=== PATIENT | male | born 1945 | race Caucasian/White ===

== ENCOUNTER 2024-02-15 14:43 | Inpatient (IN) | payer MEDICARE ==
[~2024-02-15] VITALS: Ht 182.9 cm; Wt 73.0 kg
[2024-02-15 15:45] LABS: BASOPHILS % (AUTO) 0.7 % (0.0-2.0); EOSINOPHILS # (AUTO) 0.3 K/uL (0.0-0.7); EOSINOPHILS % (AUTO) 4.7 % (0.0-6.0); HEMATOCRIT 29 % (39-51); HEMOGLOBIN 10.1 g/dL (13.5-17.5); LYMPHOCYTES # (AUTO) 2.3 K/uL (0.8-4.8); LYMPHOCYTES % (AUTO) 38.5 % (20.0-44.0); MEAN CORPUSCULAR HEMOGLOBIN 33 PG (26.0-33.0); MEAN CORPUSCULAR HGB CONC 35 g/dl (31.0-36.0); MEAN CORPUSCULAR VOLUME 94 fL (80-96); MONOCYTES # (AUTO) 0.4 K/uL (0.1-1.30); MONOCYTES % (AUTO) 6.4 % (2.0-12.0); NEUTROPHILS % (AUTO) 49.7 % (43.0-81.0); PLATELET COUNT (AUTO) 246 K/uL (150-450); RED BLOOD CELL COUNT(AUTO) 3.06 MIL/uL (4.5-6.0); RED CELL DISTRIBUTION WIDTH 14.1 % (11.5-15.0)
[2024-02-15 15:59] LABS: ALANINE AMINOTRANSFERASE 24 U/L (12-78); ALBUMIN 3.6 g/dL (3.4-5.0); ALKALINE PHOSPHATASE 53 U/L (46-116); ASPARTATE AMINOTRANSFERASE 18 U/L (15-37); BILIRUBIN,DIRECT 0.1 mg/dL (0.0-0.2); BILIRUBIN,TOTAL 0.3 mg/dL (0.2-1.0); CARBON DIOXIDE 24 mmol/L (21-32); CHLORIDE 106 mmol/L (98-107); CREATININE 1.6 mg/dL (0.6-1.3); GLUCOSE 88 mg/dL (74-106); LIPASE 66 U/L (16-77); POTASSIUM 4.3 mmol/L (3.5-5.1); SODIUM SERUM 138 mmol/L (136-145); TOTAL PROTEIN, SERUM 6.7 g/dL (6.4-8.2); UREA NITROGEN, BLOOD 30 mg/dL (7-18)
[2024-02-15] MEDS ORDERED: ONDANSETRON HCL/PF 4 MG/2 ML VIAL IVP PRN (16:30)
[2024-02-15] MEDS ORDERED: ACETAMINOPHEN 650 MG/SUPP.RECT RC PRN (16:30)
[2024-02-15] MEDS ORDERED: Z GUARD REMEDY 4 OZ OINT TP PRN (16:30)
[2024-02-15 16:45] LABS: INR 1.04 (0.91-1.10); PARTIAL THROMBOPLASTIN TIME 24.5 SEC (24.3-34.3)
[2024-02-15 17:15] VITALS: BP 125/65; TEMP 98.4; O2SAT 98
[2024-02-15] MEDS ORDERED: MELA1TAB27 PO (19:33)
[2024-02-15] MEDS ORDERED: METO25TA4 PO (19:33)
[2024-02-15] MEDS ORDERED: FINA5TAB11 PO (19:33)
[2024-02-15] MEDS ORDERED: MULT-1275 PO (19:33)
[2024-02-15] MEDS ORDERED: DONE10TA44 PO (19:33)
[2024-02-15] MEDS ORDERED: LISI20TA30 PO (19:33)
[2024-02-15] MEDS ORDERED: FLUT16SP BNOSTRILS (19:33)
[2024-02-15] MEDS ORDERED: METF-440 PO (19:33)
[2024-02-15] MEDS ORDERED: LORA-259 PO (19:33)
[2024-02-15] MEDS ORDERED: GLIP5TAB13 PO (19:33)
[2024-02-15] MEDS ORDERED: TAMS-12 PO (19:33)
[2024-02-15] MEDS ORDERED: CHOL100043 PO (19:33)
[2024-02-15] MEDS ORDERED: FAMO20TA8 PO (19:33)
[2024-02-15] MEDS ORDERED: QUET100T PO (19:33)
[2024-02-15] MEDS ORDERED: ATOR20TA PO (19:33)
[2024-02-15] MEDS ORDERED: DOCU100C36 PO (19:33)
[2024-02-15] MEDS ORDERED: ACET325T53 PO (19:33)
[2024-02-15 20:00] VITALS: BP 124/78; TEMP 97.9; O2SAT 95
[2024-02-15] MEDS: IV NS 0.9% 1,000 ML IV PRN (22:10)
[2024-02-16 04:00] VITALS: BP 126/81; TEMP 98.1; O2SAT 94
[2024-02-16 06:27] LABS: BASOPHILS % (AUTO) 0.8 % (0.0-2.0); EOSINOPHILS # (AUTO) 0.2 K/uL (0.0-0.7); EOSINOPHILS % (AUTO) 3.3 % (0.0-6.0); HEMATOCRIT 27 % (39-51); HEMOGLOBIN 9.4 g/dL (13.5-17.5); LYMPHOCYTES # (AUTO) 2.3 K/uL (0.8-4.8); LYMPHOCYTES % (AUTO) 35.4 % (20.0-44.0); MEAN CORPUSCULAR HEMOGLOBIN 33 PG (26.0-33.0); MEAN CORPUSCULAR HGB CONC 35 g/dl (31.0-36.0); MEAN CORPUSCULAR VOLUME 94 fL (80-96); MONOCYTES # (AUTO) 0.4 K/uL (0.1-1.30); MONOCYTES % (AUTO) 6.1 % (2.0-12.0); NEUTROPHILS # (AUTO) 3.5 K/uL (1.8-8.9); NEUTROPHILS % (AUTO) 54.4 % (43.0-81.0); PLATELET COUNT (AUTO) 226 K/uL (150-450); RED BLOOD CELL COUNT(AUTO) 2.86 MIL/uL (4.5-6.0); RED CELL DISTRIBUTION WIDTH 13.6 % (11.5-15.0); WHITE BLOOD COUNT (AUTO) 6.4 K/uL (4.3-11.0)
[2024-02-16 06:38] LABS: ALBUMIN 3.5 g/dL (3.4-5.0); CALCIUM, SERUM 8.8 mg/dL (8.5-10.1); CARBON DIOXIDE 22 mmol/L (21-32); CHLORIDE 109 mmol/L (98-107); CREATININE 1.4 mg/dL (0.6-1.3); GLUCOSE 92 mg/dL (74-106); MAGNESIUM 1.8 mg/dL (1.8-2.4); PHOSPHORUS 2.9 mg/dL (2.5-4.9); POTASSIUM 4.2 mmol/L (3.5-5.1); SODIUM SERUM 142 mmol/L (136-145); UREA NITROGEN, BLOOD 29 mg/dL (7-18)
[2024-02-16] MEDS: PANTOPRAZOLE 40 MG VIAL IV SCH (08:14)
[2024-02-16] MEDS: QUETIAPINE FUMARATE 100 MG TABLET PO SCH (09:00)
[2024-02-16] MEDS: METOPROLOL SUCCINATE 25 MG TAB.SR.24H PO SCH (09:00)
[2024-02-16] MEDS: TAMSULOSIN 0.4 MG CAP.SR.24H PO SCH (09:00)
[2024-02-16] MEDS: DOCUSATE SODIUM 100 MG CAPSULE PO SCH (09:00)
[2024-02-16] MEDS: FINASTERIDE (5 MG) 5 MG TABLET PO SCH (09:00)
[2024-02-16] MEDS ORDERED: LISINOPRIL (20MG) 20 MG TABLET PO SCH (09:00)
[2024-02-16] MEDS: FAMOTIDINE (20 MG) 20 MG TABLET PO SCH (09:00)
[2024-02-16 10:43] LABS: THYROID STIMULATING HORMONE 2.43 uIU/mL (0.358-3.74)
[2024-02-16 13:58] LABS: CREATININE, URINE 92.6 MG/DL (30.0-125.0); URINE TOTAL PROTEIN 18.7 mg/dL (0-11.9)
[2024-02-16 14:42] LABS: APPEARANCE,URINE CLEAR (CLEAR); BILIRUBIN,URINE NEGATIVE (NEGATIVE); BLOOD, URINE NEGATIVE Ery/uL (NEGATIVE); COLOR,URINE YELLOW (YELLOW); KETONES,URINE NEGATIVE (NEGATIVE); LEUKOCYTE ESTERASE ,URINE NEGATIVE (NEGATIVE); NITRITE, URINE NEGATIVE (NEGATIVE); PH,URINE 5.5 (5.0-8.0); PROTEIN,URINE NEGATIVE (NEGATIVE); UGLUCOSE NEGATIVE (NEGATIVE); UROBILINOGEN,URINE 0.2 EU/dL (0.2)
[2024-02-16 16:19] LABS: EOSINOPHIL,URINE None Seen
[2024-02-16] MEDS: DONEPEZIL 5 MG TABLET PO SCH (22:01)
[2024-02-16] MEDS: ATORVASTATIN 10 MG TABLET PO SCH (22:01)
[2024-02-17 06:07] LABS: FOLIC ACID 7.9 ng/mL (>3.0)
[2024-02-17 06:58] LABS: BASOPHILS % (AUTO) 0.5 % (0.0-2.0); EOSINOPHILS # (AUTO) 0.2 K/uL (0.0-0.7); EOSINOPHILS % (AUTO) 2.2 % (0.0-6.0); HEMATOCRIT 30 % (39-51); HEMOGLOBIN 10.3 g/dL (13.5-17.5); LYMPHOCYTES # (AUTO) 2.3 K/uL (0.8-4.8); LYMPHOCYTES % (AUTO) 33.4 % (20.0-44.0); MEAN CORPUSCULAR HEMOGLOBIN 32 PG (26.0-33.0); MEAN CORPUSCULAR HGB CONC 34 g/dl (31.0-36.0); MEAN CORPUSCULAR VOLUME 95 fL (80-96); MONOCYTES # (AUTO) 0.4 K/uL (0.1-1.30); MONOCYTES % (AUTO) 6.1 % (2.0-12.0); NEUTROPHILS % (AUTO) 57.8 % (43.0-81.0); PLATELET COUNT (AUTO) 237 K/uL (150-450); RED BLOOD CELL COUNT(AUTO) 3.17 MIL/uL (4.5-6.0); RED CELL DISTRIBUTION WIDTH 13.7 % (11.5-15.0); WHITE BLOOD COUNT (AUTO) 6.9 K/uL (4.3-11.0)
[2024-02-17 07:24] LABS: ALANINE AMINOTRANSFERASE 24 U/L (12-78); ALBUMIN 3.5 g/dL (3.4-5.0); ALKALINE PHOSPHATASE 61 U/L (46-116); ASPARTATE AMINOTRANSFERASE 27 U/L (15-37); BILIRUBIN,TOTAL 0.6 mg/dL (0.2-1.0); CALCIUM, SERUM 8.6 mg/dL (8.5-10.1); CARBON DIOXIDE 24 mmol/L (21-32); CHLORIDE 107 mmol/L (98-107); CREATININE 1.2 mg/dL (0.6-1.3); GLUCOSE 98 mg/dL (74-106); MAGNESIUM 1.9 mg/dL (1.8-2.4); SODIUM SERUM 140 mmol/L (136-145); TOTAL PROTEIN, SERUM 6.6 g/dL (6.4-8.2); UREA NITROGEN, BLOOD 21 mg/dL (7-18)
[2024-02-17 07:26] LABS: CREATINE KINASE, TOTAL 590 U/L (39-308)
[2024-02-17] MEDS: PANTOPRAZOLE 40 MG TABLET.DR PO SCH (09:40)
[2024-02-17] MEDS: LORAZEPAM 1 MG TABLET PO PRN (20:39)
[2024-02-18 07:07] LABS: PTH, INTACT 14 pg/mL (15-65)
[2024-02-18] MEDS ORDERED: METF-440 PO (08:02)
[2024-02-18 09:32] VITALS: BP 140/78
[2024-02-19 05:09] LABS: *SPE A/G RATIO 1.2 (0.7-1.7); *SPE ALBUMIN 3.4 g/dL (2.9-4.4); *SPE ALPHA-1-GLOBULIN 0.2 g/dL (0.0-0.4); *SPE ALPHA-2-GLOBULIN 0.8 g/dL (0.4-1.0); *SPE BETA GLOBULIN 0.8 g/dL (0.7-1.3); *SPE GLOBULIN, TOTAL 2.9 g/dL (2.2-3.9); *SPE M-SPIKE Not Observed g/dL (Not Observed); *SPE PROTEIN TOTAL 6.3 g/dL (6.0-8.5); *SPEGAMMA GLOBULIN 1.1 g/dL (0.4-1.8)
== END 2024-02-18 13:36 | DRG 640 ==
LOC: ER 14:45 → TELE1 16:43 → MEDSG1 17:07
PROVIDERS: ADMIT Nurse Practitioner Family; ATTEND Internal Medicine
DX: R62.7 Adult failure to thrive (principal); N17.0 Acute kidney failure with tubular necrosis; D63.8 Anemia in other chronic diseases classified elsewhere; I50.9 Heart failure, unspecified; Z20.822 Contact with and (suspected) exposure to COVID-19; Z79.84 Long term (current) use of oral hypoglycemic drugs; R53.1 Weakness; Z68.21 Body mass index [BMI] 21.0-21.9, adult; M89.8X9 Other specified disorders of bone, unspecified site; E86.9 Volume depletion, unspecified; J44.9 Chronic obstructive pulmonary disease, unspecified; F02.80 Dementia in other diseases classified elsewhere, unspecified severity, without behavioral disturbance, psychotic disturbance, mood disturbance, and anxiety; G30.9 Alzheimer's disease, unspecified; E11.22 Type 2 diabetes mellitus with diabetic chronic kidney disease; N18.9 Chronic kidney disease, unspecified
CPT/HCPCS: 36415; 70450-TC; 71045-TC; 76770-TC; 80048-TC; 80053-TC; 80076-TC; 82040-TC; 82550-TC; 82553; 82570-TC; 82607-TC; 83690-TC; 83735-TC; 83921; 83970; 84100-TC; 84155; 84165; 84300-TC; 84425; 84443-TC; 84484-TC; 85025-TC; 85730-TC; 87081-TC; 87086-TC; 92526; 92611-TC; A4223; G0378; J2470; J7030; J7050

== ENCOUNTER 2024-08-10 14:44 | Inpatient (IN) | payer MEDICARE, OTHER ==
[~2024-08-10] VITALS: Ht 170.2 cm; Wt 72.6 kg
[~2024-08-10 14:44] MED LIST: ACET325T53 PO; ATOR20TA PO; CHOL100043 PO; DOCU100C36 PO; DONE10TA44 PO; FAMO20TA8 PO; FINA5TAB11 PO; FLUT16SP BNOSTRILS; LISI20TA30 PO; LORA-259 PO; MELA1TAB27 PO; METF-440 PO; METO25TA4 PO; MULT-1275 PO; QUET100T PO; TAMS-12 PO
[2024-08-10 15:57] LABS: BASOPHILS % (AUTO) 0.7 % (0.0-2.0); EOSINOPHILS # (AUTO) 0.2 K/uL (0.0-0.7); EOSINOPHILS % (AUTO) 3.8 % (0.0-6.0); HEMATOCRIT 31 % (39-51); HEMOGLOBIN 10.7 g/dL (13.5-17.5); LYMPHOCYTES # (AUTO) 1.5 K/uL (0.8-4.8); LYMPHOCYTES % (AUTO) 29.9 % (20.0-44.0); MEAN CORPUSCULAR HEMOGLOBIN 32 PG (26.0-33.0); MEAN CORPUSCULAR HGB CONC 35 g/dl (31.0-36.0); MEAN CORPUSCULAR VOLUME 92 fL (80-96); MONOCYTES # (AUTO) 0.4 K/uL (0.1-1.30); MONOCYTES % (AUTO) 7.1 % (2.0-12.0); NEUTROPHILS # (AUTO) 2.9 K/uL (1.8-8.9); NEUTROPHILS % (AUTO) 58.5 % (43.0-81.0); PLATELET COUNT (AUTO) 242 K/uL (150-450); RED BLOOD CELL COUNT(AUTO) 3.32 MIL/uL (4.5-6.0); RED CELL DISTRIBUTION WIDTH 13.9 % (11.5-15.0); WHITE BLOOD COUNT (AUTO) 4.9 K/uL (4.3-11.0)
[2024-08-10] MEDS ORDERED: METF-440 PO (16:00)
[2024-08-10] MEDS ORDERED: METO25TA6 PO (16:00)
[2024-08-10 16:10] LABS: CALCIUM, SERUM 9.2 mg/dL (8.5-10.1); CARBON DIOXIDE 24 mmol/L (21-32); CHLORIDE 105 mmol/L (98-107); CREATININE 1.5 mg/dL (0.6-1.3); GLUCOSE 131 mg/dL (74-106); POTASSIUM 4.3 mmol/L (3.5-5.1); SODIUM SERUM 139 mmol/L (136-145); UREA NITROGEN, BLOOD 23 mg/dL (7-18)
[2024-08-10 16:17] LABS: ACETAMINOPHEN 0 ug/ml (10-30); ALANINE AMINOTRANSFERASE 15 U/L (12-78); ALBUMIN 3.8 g/dL (3.4-5.0); ALCOHOL, BLOOD < 3 mg/dL (0-10); ALKALINE PHOSPHATASE 75 U/L (46-116); ASPARTATE AMINOTRANSFERASE 18 U/L (15-37); BILIRUBIN,DIRECT 0.1 mg/dL (0.0-0.2); BILIRUBIN,TOTAL 0.3 mg/dL (0.2-1.0); SALICYLATE 1.3 mg/dL (2.8-20.0)
[2024-08-10 20:10] VITALS: BP 155/83; TEMP 97; O2SAT 98
[2024-08-10] MEDS: LORAZEPAM 0.5 MG TABLET PO PRN (20:26)
[2024-08-10] MEDS ORDERED: TEMAZEPAM 7.5 MG CAPSULE PO PRN (20:30)
[2024-08-10] MEDS ORDERED: LORAZEPAM 0.5 MG TABLET PO PRN (20:30)
[2024-08-10] MEDS ORDERED: clonazePAM 0.5 MG TABLET PO PRN (20:30)
[2024-08-10] MEDS ORDERED: MAGNESIUM HYDROXIDE 30 ML UDC PO PRN (20:30)
[2024-08-10] MEDS ORDERED: MAG HYDROX/AL HYDROX/SIMETH 30 ML UDC PO PRN (20:30)
[2024-08-10] MEDS: BLOOD SUGAR DIAGNOSTIC 1 EACH STRIP IN ONE (20:34)
[2024-08-10] MEDS: OLANZAPINE 10 MG VIAL IM ONE (21:10)
[2024-08-10] MEDS: ATORVASTATIN 10 MG TABLET PO SCH (21:49)
[2024-08-11] MEDS: ACETAMINOPHEN 325 MG TABLET PO PRN (04:50)
[2024-08-11 07:34] LABS: CHOLESTEROL 132 mg/dL (<200); HDL CHOLESTEROL 66 mg/dL (40-60); LDL 56 mg/dL (0-99); TRIGLYCERIDES 52 mg/dL (30-150)
[2024-08-11 07:35] LABS: ALBUMIN 4.2 g/dL (3.4-5.0); BILIRUBIN,TOTAL 0.6 mg/dL (0.2-1.0); CALCIUM, SERUM 9.5 mg/dL (8.5-10.1); CREATININE 1.3 mg/dL (0.6-1.3); POTASSIUM 3.7 mmol/L (3.5-5.1); TOTAL PROTEIN, SERUM 7.8 g/dL (6.4-8.2)
[2024-08-11 08:00] VITALS: BP 130/90; TEMP 98.6; O2SAT 96
[2024-08-11] MEDS: MULTIVITAMINS,THERAGRAN 1 UDTAB TABLET PO SCH (09:02)
[2024-08-11] MEDS: LISINOPRIL (20MG) 20 MG TABLET PO SCH (09:02)
[2024-08-11] MEDS: FAMOTIDINE (20 MG) 20 MG TABLET PO SCH (09:03)
[2024-08-11] MEDS: CHOLECALCIFEROL 1,000 UNIT TABLET (VIT D3) PO SCH (09:03)
[2024-08-11] MEDS: TAMSULOSIN 0.4 MG CAP.SR.24H PO SCH (09:03)
[2024-08-11] MEDS: DOCUSATE SODIUM 100 MG CAPSULE PO SCH (09:03)
[2024-08-11] MEDS: METOPROLOL TARTRATE 25 MG TABLET PO SCH (09:04)
[2024-08-11] MEDS: FINASTERIDE (5 MG) 5 MG TABLET PO SCH (09:04)
[2024-08-11] MEDS: METFORMIN 500 MG TABLET PO SCH (09:05)
[2024-08-11] MEDS: FLUTICASONE PROPIONATE 16 GM BOTTLE NS SCH (09:06)
[2024-08-11] MEDS: LORAZEPAM 0.5 MG TABLET PO SCH (12:44)
[2024-08-11 16:00] VITALS: BP 138/83; TEMP 98.6; O2SAT 97
[2024-08-11] MEDS: QUETIAPINE FUMARATE 25 MG TABLET PO SCH (16:18)
[2024-08-11] MEDS ORDERED: QUETIAPINE FUMARATE 100 MG TABLET PO SCH (17:00)
[2024-08-11 19:56] VITALS: BP 132/79; TEMP 98.8; O2SAT 97
[2024-08-11 20:00] VITALS: BP 132/79; TEMP 98.4; O2SAT 97
[2024-08-11] MEDS: QUETIAPINE FUMARATE 100 MG TABLET PO SCH (21:57)
[2024-08-11] MEDS: LORAZEPAM 1 MG TABLET PO SCH (22:09)
[2024-08-12] MEDS: LORAZEPAM 1 MG TABLET PO PRN (05:13)
[2024-08-12] MEDS: OLANZAPINE 10 MG VIAL IM ONE (07:46)
[2024-08-12 08:00] VITALS: BP 146/57; TEMP 98.6; O2SAT 96
[2024-08-12] MEDS: DIVALPROEX SODIUM 125 MG CAP.SPRINK PO SCH (13:32)
[2024-08-12 16:00] VITALS: BP 113/68; TEMP 98.7; O2SAT 97
[2024-08-12] MEDS: OLANZAPINE ZYDIS 5 MG TAB.RAPDIS PO SCH (21:07)
[2024-08-12 21:12] VITALS: BP 139/87; TEMP 98.7; O2SAT 98
[2024-08-12] MEDS: TEMAZEPAM 7.5 MG CAPSULE PO PRN (23:24)
[2024-08-13 08:00] VITALS: BP 157/90; TEMP 98.1; O2SAT 98
[2024-08-13 16:00] VITALS: BP 129/76; TEMP 98; O2SAT 99
[2024-08-13 20:36] VITALS: BP 129/98; TEMP 98; O2SAT 98
[2024-08-14 08:00] VITALS: BP 111/92; TEMP 97.8; O2SAT 97
[2024-08-14 15:59] VITALS: BP 127/79; TEMP 98.8; O2SAT 95
[2024-08-14 20:25] VITALS: BP 152/98; TEMP 98.2; O2SAT 95
[2024-08-15 08:00] VITALS: BP 161/80; TEMP 98.9; O2SAT 99
[2024-08-15 16:00] VITALS: BP 120/78; TEMP 98.1; O2SAT 96
[2024-08-15] MEDS: DIVALPROEX SODIUM 250 MG TABLET.DR PO SCH (17:11)
[2024-08-15 20:05] VITALS: BP 153/77; TEMP 98; O2SAT 99
[2024-08-16 08:00] VITALS: BP 126/90; TEMP 98.7; O2SAT 99
[2024-08-16 16:00] VITALS: BP 121/66; TEMP 98; O2SAT 99
[2024-08-16 20:21] VITALS: BP 136/104; TEMP 98.2; O2SAT 96
[2024-08-17 07:53] LABS: BASOPHILS % (AUTO) 0.4 % (0.0-2.0); EOSINOPHILS # (AUTO) 0.2 K/uL (0.0-0.7); EOSINOPHILS % (AUTO) 4.3 % (0.0-6.0); HEMATOCRIT 36 % (39-51); HEMOGLOBIN 11.5 g/dL (13.5-17.5); LYMPHOCYTES # (AUTO) 2.2 K/uL (0.8-4.8); MEAN CORPUSCULAR HEMOGLOBIN 31 PG (26.0-33.0); MEAN CORPUSCULAR HGB CONC 32 g/dl (31.0-36.0); MEAN CORPUSCULAR VOLUME 98 fL (80-96); MONOCYTES # (AUTO) 0.4 K/uL (0.1-1.30); MONOCYTES % (AUTO) 6.3 % (2.0-12.0); NEUTROPHILS # (AUTO) 2.8 K/uL (1.8-8.9); PLATELET COUNT (AUTO) 261 K/uL (150-450); RED BLOOD CELL COUNT(AUTO) 3.68 MIL/uL (4.5-6.0); RED CELL DISTRIBUTION WIDTH 14.2 % (11.5-15.0); WHITE BLOOD COUNT (AUTO) 5.7 K/uL (4.3-11.0)
[2024-08-17 08:00] VITALS: BP 100/56; TEMP 97.8; O2SAT 97
[2024-08-17 08:07] LABS: ALBUMIN 3.5 g/dL (3.4-5.0); BILIRUBIN,TOTAL 0.4 mg/dL (0.2-1.0); CALCIUM, SERUM 9.6 mg/dL (8.5-10.1); CREATININE 1.3 mg/dL (0.6-1.3); MAGNESIUM 1.9 mg/dL (1.8-2.4); PHOSPHORUS 3.8 mg/dL (2.5-4.9); POTASSIUM 4.2 mmol/L (3.5-5.1); TOTAL PROTEIN, SERUM 7.2 g/dL (6.4-8.2)
[2024-08-17] MEDS: BENZONATATE 100 MG CAPSULE PO PRN (08:36)
[2024-08-17] MEDS: Z GUARD REMEDY 4 OZ OINT TP SCH (08:40)
[2024-08-17 16:00] VITALS: BP 127/90; TEMP 98.1; O2SAT 97
[2024-08-17 20:00] VITALS: BP 128/82; TEMP 98.4; O2SAT 97
[2024-08-17 20:41] VITALS: BP 128/82; TEMP 98.4; O2SAT 97
[2024-08-18 08:00] VITALS: BP 127/75; TEMP 98.2; O2SAT 98
[2024-08-18 16:00] VITALS: BP_SYST 117; BP_SYST 129; BP_SYST 150; BP_DIAS 87; BP_DIAS 90; BP_DIAS 98; TEMP 98; TEMP 98.2; TEMP 98.6; O2SAT 100; O2SAT 98
[2024-08-18 20:00] VITALS: BP 120/76; TEMP 98.2; O2SAT 97
[2024-08-19 08:00] VITALS: BP 113/69; TEMP 98.5; O2SAT 98
[2024-08-19] MEDS ORDERED: DIVALPROEX SODIUM 250 MG TABLET.DR PO SCH (09:00)
[2024-08-19] MEDS: DIVALPROEX SODIUM 125 MG CAP.SPRINK PO SCH (09:28)
[2024-08-19 16:00] VITALS: BP 123/79; TEMP 98.4; O2SAT 99
[2024-08-19 21:09] VITALS: BP 122/68; TEMP 98.2; O2SAT 97
[2024-08-20 08:00] VITALS: BP 135/77; TEMP 97.7; O2SAT 96
[2024-08-20 16:00] VITALS: BP 115/73; TEMP 97.8; O2SAT 98
[2024-08-21 00:16] LABS: APPEARANCE,URINE CLEAR (CLEAR); BILIRUBIN,URINE NEGATIVE (NEGATIVE); BLOOD, URINE NEGATIVE Ery/uL (NEGATIVE); COLOR,URINE YELLOW (YELLOW); KETONES,URINE NEGATIVE (NEGATIVE); LEUKOCYTE ESTERASE ,URINE NEGATIVE (NEGATIVE); NITRITE, URINE NEGATIVE (NEGATIVE); PH,URINE 5.5 (5.0-8.0); PROTEIN,URINE NEGATIVE (NEGATIVE); UGLUCOSE NEGATIVE (NEGATIVE); UROBILINOGEN,URINE 0.2 EU/dL (0.2)
[2024-08-21 08:00] VITALS: BP 177/70; TEMP 98.2; O2SAT 100
[2024-08-21 15:22] VITALS: BP 136/78; TEMP 98; O2SAT 98
[2024-08-21 20:13] VITALS: BP 141/87; TEMP 98.2; O2SAT 98
[2024-08-22 08:00] VITALS: BP 138/70; TEMP 97.8; O2SAT 97
[2024-08-22 16:00] VITALS: BP 124/79; TEMP 98.1; O2SAT 99
[2024-08-22 19:57] VITALS: BP 127/79; TEMP 97.9; O2SAT 99
[2024-08-23 08:00] VITALS: BP 141/79; TEMP 97.8; O2SAT 99
[2024-08-23 16:00] VITALS: BP 111/62; TEMP 97.8; O2SAT 100
[2024-08-23] MEDS: CLOTRIMAZOLE 1% 15 GM TUBE TP SCH (17:22)
[2024-08-23 20:14] VITALS: BP 148/84; TEMP 98.2; O2SAT 100
[2024-08-24 08:00] VITALS: BP 118/53; TEMP 97.9; O2SAT 97
[2024-08-24 08:15] VITALS: BP 118/53
== END 2024-08-24 12:30 | DRG 885 ==
LOC: ER 14:50 → GPS 19:44
PROVIDERS: ADMIT Psychiatry & Neurology Psychosomatic Medicine
DX: F29 Unspecified psychosis not due to a substance or known physiological condition (principal); N18.9 Chronic kidney disease, unspecified; N17.9 Acute kidney failure, unspecified; F02.82 Dementia in other diseases classified elsewhere, unspecified severity, with psychotic disturbance; I13.0 Hypertensive heart and chronic kidney disease with heart failure and stage 1 through stage 4 chronic kidney disease, or unspecified chronic kidney disease; E11.22 Type 2 diabetes mellitus with diabetic chronic kidney disease; G30.9 Alzheimer's disease, unspecified; I50.9 Heart failure, unspecified; B35.3 Tinea pedis; D64.9 Anemia, unspecified; E78.5 Hyperlipidemia, unspecified; Z20.822 Contact with and (suspected) exposure to COVID-19; Z73.6 Limitation of activities due to disability; F25.9 Schizoaffective disorder, unspecified; N40.0 Benign prostatic hyperplasia without lower urinary tract symptoms; E83.9 Disorder of mineral metabolism, unspecified; J44.9 Chronic obstructive pulmonary disease, unspecified; L98.8 Other specified disorders of the skin and subcutaneous tissue; M89.8X9 Other specified disorders of bone, unspecified site; Z79.899 Other long term (current) drug therapy; Z79.84 Long term (current) use of oral hypoglycemic drugs
CPT/HCPCS: 36415; 70450-TC; 71045-TC; 80048-TC; 80053-TC; 80061-TC; 80076-TC; 80164-TC; 82140-TC; 82962-TC; 83735-TC; 84100-TC; 85025-TC; 87081-TC; 97110-TC; 97112-TC; 97116-TC; 97530-TC; G0480; J3490